=== PATIENT | female | born 1985 | race Caucasian/White ===

== ENCOUNTER → 2016-06-12 | Outpatient (CLI) | payer BC ==
[~2016-06-12] MED LIST: ASPI325T45 PO; BCPILLS PO; HYDR-5688 PO; MULT-506 PO; OLOP1DRO OPB
== END | disposition home or self-care (01) ==
LOC: C.RDSM 12:00
PROVIDERS: ATTEND Physical Medicine & Rehabilitation Sports Medicine
DX: M25.562 Pain in left knee (principal)

== ENCOUNTER → 2016-07-09 | Day surgery (SDC) | payer BC ==
[2016-06-16 07:34] VITALS: Ht 172.7 cm; Wt 90.9 kg
[~2016-07-09] VITALS: Ht 172.7 cm; Wt 90.9 kg
[~2016-07-09] MED LIST changes: +ATROPINE SULFATE 0.1 MG/ML 5ML SYR IV PRN; +CEFAZOLIN 2000 MG/60 ML D5W IV SCH; +DEXAMETHASONE SOD INJ 4 MG/ML VIAL ONE; +EpHEDrine SULFATE INJ 50 MG/ML AMP IV PRN; +FENTANYL CITRATE INJ 50 MCG/1 ML 2 ML VIAL ONE; +LACTATED RINGER'S 1000ML 1,000 ML IV SCH; +LIDOCAINE HCL 2% 2 ML VIAL (20MG/ML) ONE; +LIDOCAINE/EPINEPHRINE 1% INJ 50 ML VIAL ONE; +MIDAZOLAM HCL 1 MG/ML 2ML VIAL ONE; +MoRPHine SULFATE 2 MG/ML CARP IV PRN; +MoRPHine SULFATE 4 MG/ML 1 ML CARP\\VIAL IV PRN; +ONDANSETRON INJ 2 MG/ML 2 ML VIAL IV PRN; +ONDANSETRON INJ 2 MG/ML 2 ML VIAL ONE; +OXYCODONE/ACETAMINOPHEN 5-325 TAB PO PRN; +PROMETHAZINE HCL INJ 6.25 MG in SODIUM CHLORIDE 0.9% 50ML 50 ML IV PRN; +PROPOFOL IV EMULSION 10 MG/ML 20 ML VIAL IV ONE; +SODIUM CHLORIDE 0.9% 1000ML 1,000 ML IV SCH
--- NOTE | 2016-07-09 11:45 | History & Physical Bridge Note ---
H&P Re-Evaluation Bridge Note: I have examined the patient, reviewed the History & Physical and in the interval since the performance of the History & Physical I have noted the following changes of clinical significance: No changes noted
--- NOTE | 2016-07-09 13:48 | Discharge Instructions-SurgCtr ---
Discharge Instructions Date of Service Jul 09, 2016. Visit Reason for Visit: Left Knee Medial Meniscus Tear Discharge Discharge Diagnosis / Problem: left knee medial meniscus tear Discharge Goals Goal(s): Decrease discomfort, Improve function, Increase independence Medications Stopped Medications Name(s): Stopped control Activity Recommendations Activity Limitations: per Instructions/Follow-up section Weightbearing Status: Left weightbearing (as tolerated) Anesthesia . Post Anesthesia Instructions: If you have had General Anesthesia or IV Sedation: * Do not drive today. * Resume driving when surgeon permits. * Do not make important decisions or sign legal documents today. * Call surgeon for: 1. Temperature elevations greater than 101 degrees F. 2. Uncontrollable pain. 3. Excessive bleeding. 4. Persistent nausea and vomiting. 5. Medication intolerance (nausea, vomiting or rash). * For nausea and vomiting use only clear liquids such as: tea, soda, bouillon until nausea subsides, then gradually increase diet as tolerated. * If you have any concerns or questions, call your surgeon's office. If physician is unavailable and it is an emergency, call 911 or go to the nearest emergency room. . Instructions / Follow-Up Instructions / Follow-Up The following are instructions to follow after your Arthroscopic Knee Surgery. ACTIVITY RECOMMENDATIONS: * Minimize activity until your first visit after surgery. * No excessive walking, jogging, sports or laboring. * Return to activity is individualized. Most patients are able to return to every day activities within one month. * Return to sports or intensive labor usually occurs at 2-3 months. * Driving is not permitted until at least your first postoperative visit at a minimum. Please ask your doctor when it is safe to resume driving. If you have an automatic vehicle and your left leg has been operated on, then you may begin driving as soon as you are comfortable and can drive safely. SCHOOL/WORK RECOMMENDATIONS: * You may return to sedentary work or school when you are feeling more comfortable. This is usually 3-7 days after surgery. * Expect increased discomfort with increased activity. Continue to elevate and ice the leg as much as possible. MEDICATIONS: * You will have a prescription for pain medication and an anti-inflammatory medication after surgery. * Use the pain medication for severe pain and the anti-inflammatory for less severe pain. Once the pain medication has run out, try to use the anti-inflammatory medication. If this is not effective, contact the office for assistance. * The pain medication may cause nausea, constipation and drowsiness. You should see how they affect you before driving or similar activity. * The anti-inflammatory medication may cause stomach upset and bleeding. If this occurs let your doctor know immediately . * Take a stool softener like Colace or a laxative like Senokot to prevent constipation. DIET: * Resume previous diet. SPECIAL CARE: ICE: You have the option of an ice cooler, gel packs or ice bags. * If you have an ice cooler, refer to the instructions for that device. The ice cooler may be used continuously. * If you do not have an ice cooler, you will need to use ice bags or gel packs. Do not apply ice directly to the skin. Use a thin dressing or aria shirt between the skin and ice bag. Apply ice for 20-30 minutes and repeat every 2-4 hours. This is especially important for the first 7-10 days after surgery. Once the pain improves, use ice as needed. ELEVATION: * Keep your leg elevated at or above the level of your heart as much as possible. * Expect some increased discomfort and swelling if you are standing for any length of time. * When lying down, avoid placing anything under your knee. Rather, prop your leg up by placing several pillows under your heel or calf. DRESSING: * Your dressing will be changed at your first therapy appointment approximately 4-5 days after surgery. Band-aids, tape strips or gauze may be applied. You may then change your dressing daily. * Reapply dressing followed by the Fermin wrap or Tubi-convention services manager stockinet and EBIce cooling pad (if chosen). * Always wash your hands prior to touching the incision area. * Once the stitches are removed, you may leave the wound open to air or cover with an Fermin wrap or Tubi-convention services manager stockinet. * If you have been given a white elastic stocking (DANNY hose), wear as much as possible for the first 1-3 weeks depending on swelling. * Expect some bloody drainage for the first few days after surgery. * Leave the tape strips, if present, in place for 5-7 days. * Band-aids and gauze may be changed daily. CRUTCHES: * You will need to use crutches after surgery. * You may gradually progress to full weight bearing as tolerated and wean off the crutches unless otherwise advised. * Your therapist can provide assistance weaning off crutches. * Patients who have a microfracture done may need to be toe-touch weight- bearing for 4-6 weeks. BATHING: * You may shower or sponge-bathe immediately after surgery. * The dressing will need to be covered with a plastic bag or plastic wrap until the dressing is changed on the fourth or fifth day after surgery. * Once the dressing has been changed on the fourth or fifth day after surgery, you may shower and get the incision wet. * Wash with regular soap and water. * Do not bathe (submerge the incision), soak, swim or use a hot tub until the incision is completely healed over with normal skin and the doctor has given the OK to proceed. * There is no need to apply any ointments, powders or salves to your incision. * Do not apply alcohol or hydrogen peroxide directly to the incision. * Diluted peroxide (50:50 mixture with sterile saline) may be used to clean dried blood from around the incision area. BRACE: * Bracing is generally not needed after routine Arthroscopic Knee surgery. THERAPY: * You will begin therapy four or five days after surgery. * Organized therapy with the therapist is important for the first 4-6 weeks after surgery. During that time you will attend therapy 1-3 times per week. * You will also need to do daily exercises for range of motion and strength as instructed. PROBLEMS/QUESTIONS: * If you have any problems such as severe pain, numbness, tingling or high fevers or if you have any questions, please contact the office at [phone]. * It is not uncommon to have some numbness and tingling after the surgery especially if you have had a nerve block done. This should gradually improve over the first 1- 2 days. If this persists longer or worsens please contact the office. FOLLOW UP VISIT: * If not already scheduled, please call the office at to schedule a follow-up appointment for 10 days, 6 weeks and 3 months after surgery. * You have a physical therapy appointment on 07/14/16 at 10:30 a.m. * You have a follow up appointment with Dr. Wu on 07/22/16 at 12:00 p.m. Diet Recommendations Home Diet: no limitations, resume previous diet Procedures Procedures Performed: Left Knee Arthroscopy with Medial Meniscus, Partial Medial Menisectomy with Loose Body Removal Pending Studies Studies pending at discharge: no Medical Emergencies . Who to Call and When: Medical Emergencies: If at any time you feel your situation is an emergency, please call 911 immediately. . Non-Emergent Contact Non-Emergency issues call your: Surgeon Call Non-Emergent contact if: temperature is above 101, your pain is not controlled, your pain is concerning you, you have any medication questions . . "Provider Documentation" section prepared by Corrina Allen.
--- NOTE | 2016-07-09 13:55 | [facility] Operative Report ---
Operative Report Operative Date Jul 09, 2016. Pre-Operative Diagnosis Left Knee Medial Meniscus Tear Post-Operative Diagnosis left knee medial meniscus tear Procedure(s) Performed Left knee arthroscopy, partial medial meniscectomy Surgeon Dr. Bryan Wu Warp Worker Surgeon(s) Corrina Pearson PA-C Estimated Blood Loss Minimal Findings medial meniscus tear Specimens None Drains None Anesthesia General Complication(s) None Disposition Recovery Room / PACU Indications Patient is a 31 year old female, with complaints of left knee pain. Failed conservative treatment. x-rays/MRI obtained, found to have a medial meniscus tear. Surgical intervention discussed, she wished to proceed with surgery. Risks/complications discussed, informed consent obtained. Description of Procedure Patient was taken to the recovery room, given IV Ancef for surgical prophylaxis. Time out performed, prepped and draped in routine sterile fashion. Patient was awakened and taken to the recovery room in stable condition. I was present the entire case, please see Dr. Wu's operative report for further details. I attest to the content of the Intraoperative Record and any orders documented therein. Any exceptions are noted below.
[2016-07-09] MEDS: FENTANYL CITRATE INJ 50 MCG/1 ML 2 ML VIAL IV PRN ×2 (14:04→14:20)
--- NOTE | 2016-07-09 14:12 | OPERATIVE REPORT ---
DATE OF OPERATION: 07/09/2016 PREOPERATIVE DIAGNOSIS: Left knee medial meniscus tear. POSTOPERATIVE DIAGNOSES: Same plus loose body. SURGEON: Dr. Wu. COMPLIANCE DIRECTOR: Matteo Machuca, fellow. SECOND COMPLIANCE DIRECTOR: Corrina Allen, physician's front end assistant. ANESTHESIA: General. PROCEDURES PERFORMED: Left knee arthroscopy, partial medial meniscectomy, and removal of loose body. BRIEF HISTORY: The patient is a 31-year-old female with a symptomatic left knee medial meniscus tear. She is status post a prior partial medial meniscectomy involving the anterior horn of the meniscus. This looks like a deeper tear involving the more posterior portion of her meniscus. Treatment options, risks and benefits were discussed and she elected to proceed with operative intervention. PROCEDURE IN DETAIL: Informed consent was obtained. The patient identified as Ana Estrada. She identified the operative site as the left knee. I marked it with my initials. A preop surgical time-out was performed. A preop dose of IV antibiotics was given. She was taken to the operating room and positioned supine on the operating room table. A general anesthetic was administered. A preop surgical time-out was performed. A preop dose of IV antibiotics was given. She was positioned supine on the operating room table. The examination showed range 1/0/135 equal to the opposite side. She had an intact cruciate and collateral ligament stability and she did not have any effusion. 1% lidocaine with epinephrine was injected into the fat pad and portal sites preoperatively. DVT prophylaxis will be done with early patient mobility and aspirin. She had also stopped her oral contraceptive. Routine prep and drape was performed. A lateral post was used for stressing the knee. Prior arthroscopic portals utilized where appropriate. Inferolateral viewing portal, superolateral outflow portal, and inferomedial working portal were established. Diagnostic arthroscopy was performed. There were some adhesions in the suprapatellar pouch, but nothing of any significance. The articular surface of the patella and femur were normal. The medial and lateral gutters were unremarkable except for a small loose body in the lateral gutter, which was debrided. The popliteal hiatus was normal. The fat pad and ligamentum mucosum had previously been resected. The cruciates were normal. The posteromedial and lateral compartments were normal. There was grade 1 softening of the lateral tibial plateau. The femoral cartilage on the lateral side was normal. The lateral meniscus was intact and stable to probing. The medial compartment showed fissuring of the medial femoral condyle, but no cartilaginous defects. The tibial side looked normal. The medial meniscus looked relatively normal. There might have been slightly less volume of the meniscus anteriorly, but otherwise looked fairly normal. Probing the meniscus revealed initially that there was an undersurface oblique tear in the central portion of the meniscus posterior horn. To improve visualization, the MCL was perforated with an 18-gauge spinal needle. This allowed visualization of the superior surface of the meniscus where there was an undersurface tear communicated to the articular surface. This tissue fell fairly soft and degenerative. Due to location, quality of the tissue, and size of the tear, repair was not possible. The meniscal roots were intact. Arthroscopic partial medial meniscectomy was performed debriding the meniscus back to a balanced and well contoured rim using basket forceps and a motorized shaver. The meniscus was probed and there were no hidden fragments or flaps. About 25% of the meniscal volume was removed. This was somewhat of an oblique tear that went more posterior and tibial side, which required removal of more preferentially on the undersurface of the meniscus and more of the top flap was able to be preserved. The shaver was run through the knee to grape picker loose debris. The portals were closed with 4-0 nylon. A soft sterile dressing was applied. The patient was awakened from anesthesia without difficulty and taken to recovery in stable condition. There were no specimens or complications. Counts were correct at the end of case. Blood loss was minimal. At the conclusion of the operation, I spoke to the patient's family and informed them of my findings and detailed postoperative instructions. She will be rehabilitated according to the arthroscopic partial medial meniscectomy protocol. She can weightbear as tolerated. She will take aspirin 325 b.i.d. for DVT prophylaxis and will hold on her oral contraceptive pill. I attest to the content of the Intraoperative Record and any orders documented therein. Any exceptio ns are noted below.
[2016-07-09 14:45] VITALS: TEMP 36.8
--- NOTE | 2016-07-09 15:13 | Anesthesia Progress Nt - [facility] ---
Anesthesia Post Op Note Date & Time Jul 09, 2016 at 15:12 Vital Signs Pain Intensity: 8.0 Vital Signs Past 12 Hours Date Time Temp Pulse Resp B/P Pulse Ox O2 Delivery O2 Flow Rate FiO2 07/09/16 14:45 36.8 63 16 117/72 100 Room Air 07/09/16 14:30 123/74 07/09/16 14:29 36.8 07/09/16 14:28 75 13 07/09/16 14:28 72 13 99 07/09/16 14:25 128/77 07/09/16 14:23 73 6 99 07/09/16 14:23 74 6 07/09/16 14:20 125/71 07/09/16 14:18 86 15 07/09/16 14:18 86 15 100 07/09/16 14:15 133/71 07/09/16 14:13 90 16 07/09/16 14:13 88 16 100 07/09/16 14:10 127/69 07/09/16 14:08 85 4 100 07/09/16 14:08 75 4 07/09/16 14:05 122/65 07/09/16 14:03 89 13 100 07/09/16 14:03 85 13 07/09/16 14:00 134/79 07/09/16 13:58 101 10 100 07/09/16 13:58 98 10 07/09/16 13:55 127/81 07/09/16 13:53 95 33 07/09/16 13:53 96 33 100 07/09/16 13:52 36.6 87 16 141/93 100 Diffusion Mask 8 07/09/16 09:12 36.5 77 16 129/76 100 Room Air Notes Mental Status: alert / awake / arousable, participated in evaluation Pt Amnestic to Procedure: Yes Nausea / Vomiting: adequately controlled Pain: adequately controlled Airway Patency, RR, SpO2: stable & adequate BP & HR: stable & adequate Hydration State: stable & adequate Anesthetic Complications: no major complications apparent
[2016-07-09 15:20] VITALS: BP 112/65; PULSE 67; O2SAT 99
== END | disposition home or self-care (01) ==
LOC: X.SURG 08:58
PROVIDERS: ATTEND Physical Medicine & Rehabilitation Sports Medicine
DX: M23.232 Derangement of other medial meniscus due to old tear or injury, left knee (principal)

== ENCOUNTER → 2016-08-03 | Outpatient (CLI) | payer BC ==
[~2016-08-03] MED LIST changes: -ATROPINE SULFATE 0.1 MG/ML 5ML SYR IV PRN; -BCPILLS PO; -CEFAZOLIN 2000 MG/60 ML D5W IV SCH; -DEXAMETHASONE SOD INJ 4 MG/ML VIAL ONE; -EpHEDrine SULFATE INJ 50 MG/ML AMP IV PRN; -FENTANYL CITRATE INJ 50 MCG/1 ML 2 ML VIAL ONE; -LACTATED RINGER'S 1000ML 1,000 ML IV SCH; -LIDOCAINE HCL 2% 2 ML VIAL (20MG/ML) ONE; -LIDOCAINE/EPINEPHRINE 1% INJ 50 ML VIAL ONE; -MIDAZOLAM HCL 1 MG/ML 2ML VIAL ONE; -MoRPHine SULFATE 2 MG/ML CARP IV PRN; -MoRPHine SULFATE 4 MG/ML 1 ML CARP\\VIAL IV PRN; -ONDANSETRON INJ 2 MG/ML 2 ML VIAL IV PRN; -ONDANSETRON INJ 2 MG/ML 2 ML VIAL ONE; -OXYCODONE/ACETAMINOPHEN 5-325 TAB PO PRN; -PROMETHAZINE HCL INJ 6.25 MG in SODIUM CHLORIDE 0.9% 50ML 50 ML IV PRN; -PROPOFOL IV EMULSION 10 MG/ML 20 ML VIAL IV ONE; -SODIUM CHLORIDE 0.9% 1000ML 1,000 ML IV SCH
== END | disposition home or self-care (01) ==
LOC: C.RDSM 14:54
PROVIDERS: ATTEND Physical Medicine & Rehabilitation Sports Medicine
DX: M25.562 Pain in left knee (principal)